=== PATIENT | male | born 1975 | race African-American/Black ===

== ENCOUNTER 2016-11-14 18:54 | Emergency (ER) | payer OTHER, SELFPAY ==
--- NOTE | 2016-11-14 21:21 | RAD ---
CHEST TWO VIEWS: History: Right rib pain. Cough and congestion x 3 days. Comparison: None. FINDINGS: Normal cardiac silhouette. The pulmonary vessels and hilum are normal. Costophrenic angles are clear . No masses or consolidation. No pneumothorax or osseous abnormalities. IMPRESSION: No acute cardiopulmonary process. POS: [facility]
== END 2016-11-14 20:58 | disposition home or self-care (01) ==
LOC: ERS 18:54
DX: S20.211A Contusion of right front wall of thorax, initial encounter (principal); Y04.0XXA Assault by unarmed brawl or fight, initial encounter; Y93.71 Activity, boxing
CPT/HCPCS: 71020

== ENCOUNTER 2018-12-19 08:14 | Outpatient (CLI) | payer OTHER ==
--- NOTE | 2018-12-21 08:26 | EEG ---
Referring Physician: Demetris GRIFFIN EEG # [id number] TEST TYPE: ROUTINE OUTPATIENT REPORT: AN EEG USING THE [employer] T[employer]ENTY SYSTEM OF ELECTRODE PLACEMENT WAS PERFORMED. The waking background is a well modulated 8-9 hertz alpha frequency. The patient remained awake throughout the study. Photic stimulation and Hyperventilation were unremarkable. IMPRESSION: THIS IS A NORMAL AWAKE EEG. Ceramic Tile Setter: MEGHAN Pipe Covering Molder: [email or web address]
== END 2018-12-19 08:15 | disposition home or self-care (01) ==
LOC: EEG 08:14
PROVIDERS: ATTEND Family Medicine
DX: Z04.89 Encounter for examination and observation for other specified reasons (principal); Y93.71 Activity, boxing
CPT/HCPCS: 95816

== ENCOUNTER 2018-12-20 09:09 | Outpatient (CLI) | payer OTHER ==
--- NOTE | 2018-12-21 07:07 | EKG ---
Test Reason : Blood Pressure : / mmHG Vent. Rate : 051 BPM Atrial Rate : 051 BPM P-R Int : 184 ms QRS Dur : 114 ms QT Int : 430 ms P-R-T Axes : 034 081 000 degrees QTc Int : 396 ms Sinus bradycardia Voltage criteria for left ventricular hypertrophy anterior upsloping ST elevation, cannot R/O acute DC changes Abnormal ECG No previous ECGs available Confirmed by DR. Maldonado ASCENCIO ([id number]) on 12/21/2018 7:06:56 AM Referred By: ZEINA GRIFFIN Confirmed By:DR. Maldonado ASCENCIO
== END 2018-12-20 09:10 | disposition home or self-care (01) ==
LOC: EKG 09:09
PROVIDERS: ATTEND Family Medicine
DX: R00.1 Bradycardia, unspecified (principal); Y93.71 Activity, boxing
CPT/HCPCS: 93005; 93010

== ENCOUNTER 2020-01-08 09:06 | Outpatient (CLI) | payer OTHER ==
--- NOTE | 2020-01-08 18:21 | EEG ---
DATE OF SERVICE: DESCRIPTION OF THE RECORD: Waking background is a medium amplitude, 9 hertz alpha frequency. The patient remained awake throughout the study. Hyperventilation and photic stimulation were unremarkable. No epileptiform features were seen. IMPRESSION: This is a normal awake EEG. Job ID: [id number]
== END 2020-01-08 09:07 | disposition home or self-care (01) ==
LOC: EKG 09:06
PROVIDERS: ATTEND Family Medicine
DX: Z04.89 Encounter for examination and observation for other specified reasons (principal); Y93.71 Activity, boxing
CPT/HCPCS: 93005; 93010; 95816

== ENCOUNTER 2022-04-04 13:08 | Emergency (ER) | payer OTHER | END 2022-04-04 17:25 | disposition home or self-care (01) | LOC: ERS 13:08 | DX: H43.11 Vitreous hemorrhage, right eye (principal) | CPT/HCPCS: 99284 ==